=== PATIENT | male | born 1965 | race Caucasian/White ===

== ENCOUNTER 2018-10-16 06:20 | Day surgery (SDC) | payer OTHER ==
[~2018-10-16] VITALS: Ht 175.3 cm; Wt 97.6 kg
[2018-10-16 07:29] VITALS: Ht 175.3 cm; Wt 97.6 kg
[2018-10-16] MEDS ORDERED: LIDOCAINE 2% (SDV) 5 ML INJ ONE (07:40)
[2018-10-16] MEDS ORDERED: PROPOFOL 60 ML ONE (07:40)
--- NOTE | 2018-10-16 07:40 | PREAC ---
Date/Time of Note Date/Time of Note DATE: 10/16/18 TIME: 07:37 Anesthesia Eval and Record Evaluation Time Pre-Procedure Interview DATE: 10/16/18 TIME: 07:37 Age 52 Sex male NPO: 8 hrs Preoperative diagnosis Colon screening Planned procedure Colonoscopy Past Medical History Past Medical History: Includes Endo: Diabetes GI: Obesity Surgery & Anesthesia Issues No known issue Meds Anticoagulation: No Beta Kurt within 24 hr: No Reason Beta Kurt not given: Pt. not on B-Kurt Reported Medications [none] No Conflict Check 10/16/18 Meds reviewed: Yes Allergies Coded Allergies: No Known Allergy (Unverified , 10/16/18) Allergies Reviewed: Yes Labs/Studies Labs Reviewed: Reviewed by anesthesiologist test: N/A Studies: ECG Pre-procedure Exam Last vitals BP:122/67, P:78, spo2:100%, T:98,8 Airway: Adequate mouth opening, Adequate thyromental dist Mallampati: Mallampati II Teeth: Normal Lung: Normal Heart: Normal ASA Physical Status ASA physical status: 3 Emergency: None Planned Anesthetic General/MAC: MAC Planned Pain Management Parenteral pain med Pre-operative Attestations Prior to commencing anesthesia and surgery, the patient was re-evaluated, there was verification of: *The patient's identity *The results of appropriate recent lab work and preoperative vital signs *The above evaluation not changing prior to induction *Anesthetic plan, risk benefits, alternative and complications discussed with patient/family; questions answered; patient/family understands, accepts and wishes to proceed. VEENA BUTLER MD Oct 16, 2018 07:40
[2018-10-16 07:41] VITALS: BP 153/87; PULSE 68; RESP 12
--- NOTE | 2018-10-16 08:14 | PAC ---
Date/Time of Note Date/Time of Note DATE: 10/16/18 TIME: 08:13 Post-Anesthesia Notes Post-Anesthesia Note Activity: WNL Respiratory function: WNL Cardiovascular function: WNL Mental status: Baseline Pain reasonably controlled: Yes Hydration appropriate: Yes Nausea/Vomiting absent: Yes Comments BP:122/56, P76, Spo2:100%, T:98,8 VEENA BUTLER MD Oct 16, 2018 08:14
[2018-10-16 08:42] VITALS: BP 137/79; PULSE 68; RESP 18
== END 2018-10-16 11:13 | disposition home or self-care (01) ==
LOC: GIL 06:20
PROVIDERS: ATTEND Internal Medicine Gastroenterology
DX: Z12.11 Encounter for screening for malignant neoplasm of colon (principal); D12.8 Benign neoplasm of rectum; E11.9 Type 2 diabetes mellitus without complications
CPT/HCPCS: 45380; 82962; 88305; Z7610